=== PATIENT | female | born 1960 | race Caucasian/White ===

== ENCOUNTER 2025-03-16 14:02 | Emergency (ER) | payer MEDICAID, OTHER ==
[~2025-03-16] VITALS: Ht 167.6 cm; Wt 78.0 kg
[2025-03-16 14:19] VITALS: TEMP 36.7; O2SAT 100
[2025-03-16 14:55] LABS: BASOPHILS % 0.7 % (0.0-2.0); EOSINOPHILS % 2.1 % (0.0-5.0); HEMATOCRIT. 36.7 % (36.0-48.0); HEMOGLOBIN. 12.5 g/dL (12.0-16.0); LYMPHOCYTES % 19.4 % (20.0-50.0); MEAN PLATELET VOLUME 9.5 fl (7.4-10.4); MONOCYTES % 10.7 % (2.0-8.0); NEUTROPHILS % 67.1 % (40.0-76.0); PLATELET 197 x1000/uL (130-400); RED BLOOD CELL COUNT 4.10 mill/uL (4.2-5.4); RED CELL DISTRIBUTION WIDTH 13.8 % (11.6-14.6)
[2025-03-16 15:08] LABS: CREATININE 0.7 mg/dL (0.6-1.0); UREA NITROGEN BLOOD 14 mg/dL (9-23)
[2025-03-16 17:21] VITALS: BP 111/63; PULSE 67; RESP 14; O2SAT 97
== END 2025-03-16 17:21 | disposition home or self-care (01) ==
LOC: ER 14:02
DX: M79.89 Other specified soft tissue disorders (principal); I10 Essential (primary) hypertension
CPT/HCPCS: 36415; 71045; 80048; 85025; 93970; 99284